=== PATIENT | female | born 1985 | race Caucasian/White ===

== ENCOUNTER 2019-05-13 08:40 | Day surgery (SDC) | payer OTHER ==
[~2019-05-13] VITALS: Ht 162.6 cm; Wt 73.3 kg
[~2019-05-13 08:40] MED LIST: Esgic Tablet1 EACH PO; HYDACE5 PO; HYDACE5325 PO; Hydromet Syrup473 ML PO; NAPR500 PO; OXYACE5T PO; PROM25 PO; RXOXYACE PO; RXPROM25 PO; SULTRIDS PO
[2019-05-13] MEDS ORDERED: ABAT250V (09:05)
[2019-05-13] MEDS ORDERED: ACET325 PO (09:05)
--- NOTE | 2019-05-13 09:25 | NUR ---
Ambulatory in Day Surgery Surgical site prepped with 2% Chlorhexidine cloth wipe. History, Chart, Medications and Allergies reviewed before start of procedure.Lungs clear T/O to Auscultation. Patient confirms NPO status and agrees with scheduled surgery. Patient States Post-Procedure ride home has been arranged.
--- NOTE | 2019-05-13 12:35 | NUR ---
pt transferred to room via stretcher, a/0 x 4, pleasant/cooperative, rates pain at 5/10, denies n/v, post op vs commenced, stable. pt's with pt.
--- NOTE | 2019-05-13 21:36 | NUR ---
shift summary: pt remained a/o x 4, pleasant/cooperative, post op vss and complete. pt tolerates minimal PO intake of food, drinking fluids with no n/v. after attemptin dairy, pt reported some nausea, no vomiting. pt tolerated PO analgesia per mar. pt ambulated in hallways x 2. treviño catheter patent/draining clear yellow urine. scant vaginal drainage on carlitos pad. lungs clear. laparascopic sites x 3 c/d/i, no drainage
[2019-05-14 04:14] LABS: BASOPHILS ABSOLUTE AUTO 0.01 K/mm3 (0.00-0.23); BASOPHILS PERCENT AUTO 0 % (0-2); EOSINOPHILS ABSOLUTE AUTO 0.01 K/mm3 (0.00-0.68); EOSINOPHILS PERCENT AUTO 0 % (0-6); Hematocrit 37.4 % (33.0-51.0); IMMATURE GRAN ABSOLUTE AUTO 0.01 K/mm3 (0.00-0.10); IMMATURE GRAN PERCENT AUTO 0 % (0-1); LYMPHOCYTES ABSOLUTE AUTO 0.62 K/mm3 (0.84-5.20); LYMPHOCYTES PERCENT AUTO 9 % (21-46); MONOCYTES ABSOLUTE AUTO 0.77 K/mm3 (0.16-1.47); MONOCYTES PERCENT AUTO 11 % (4-13); Mean Corpuscular HGB 27.5 pg (26.0-34.0); Mean Corpuscular HGB Conc 32.1 g/dL (31.5-36.5); Mean Corpuscular Volume 86 fL (80-100); Mean Platelet Volume 9.6 fL (9.1-12.4); NEUTROPHILS ABSOLUTE AUTO 5.35 K/mm3 (1.96-9.15); NEUTROPHILS PERCENT AUTO 79 % (41-73); Platelet Count 200 K/mm3 (150-400); RDW Coefficient Variation 13.3 % (11.7-14.2); RDW Standard Deviation 41.9 fL (35.1-46.3); Red Blood Cell Count 4.37 M/mm3 (3.80-5.20); White Blood Cell Count 6.77 K/mm3 (4.00-11.30)
--- NOTE | 2019-05-14 06:24 | NUR ---
SHIFT SUMMARY PATIENT HAS HAD AN UNEVENTFUL NIGHT. SHE WAS UP IN THE [facility] WALKING LOOPS WITH HER . SHE WAS EXPERIENCING 6-8/10 ABDOMINAL AND VAGINAL PAIN, MEDICATED PER EMAR. tHIS MORNING SHE HAS BEEN PASSING GAS AND HER PAIN IS UNDER CONTROL. SCANT VAGINAL BLEEDING, ABDOMINAL LAP SITES ARE CLEAN AND DRY. HADLEY CATH IS DRAINING CLEAR YELLOW URINE. NO OTHER ACUTE CHANGES.
[2019-05-14] MEDS ORDERED: HYDR1TAB94 PO (09:38)
[2019-05-14] MEDS ORDERED: IBUP800 PO (09:38)
[2019-05-14] MEDS ORDERED: VIVELLE DOT TD (09:40)
[2019-05-14] MEDS ORDERED: ONDA4ODT SL (09:42)
--- NOTE | 2019-05-14 11:47 | NUR ---
DISCHARGE PT DISCHARGED HOME FROM UNIT AT APROX 1100. PT GIVEN WRITTEN AND VERBAL DISCHARGE INSTRUCTIONS AND VERBALIZED UNDERSTANDING OF THESE INSTRUCTIONS. IV REMOVED, PT TOLERATED WELL. WHEELCHAIR ASSISTANCE TO CAR.
== END 2019-05-14 10:57 | disposition home or self-care (01) ==
LOC: ORSCMMR 08:40 → ORD 09:30 → SURS 12:14 → ORSCMMR 05-14 10:57
PROVIDERS: Obstetrics & Gynecology
PROC: 0UT9FZZ Resection of Uterus, Via Natural or Artificial Opening With Percutaneous Endoscopic Assistance (ICD-10-PCS; principal; 2019-05-13 09:30)
PROC: 0UT2FZZ Resection of Bilateral Ovaries, Via Natural or Artificial Opening With Percutaneous Endoscopic Assistance (ICD-10-PCS; principal; 2019-05-13 09:30)
PROC: 0UT7FZZ Resection of Bilateral Fallopian Tubes, Via Natural or Artificial Opening With Percutaneous Endoscopic Assistance (ICD-10-PCS; principal; 2019-05-13 09:30)
DX: N80.3 Endometriosis of pelvic peritoneum (principal); N80.0 Endometriosis of uterus; R10.2 Pelvic and perineal pain; N83.201 Unspecified ovarian cyst, right side; F17.210 Nicotine dependence, cigarettes, uncomplicated; M79.7 Fibromyalgia
CPT/HCPCS: 36415; 85025; 86850; 86870; 86900; 86901; 86905; 88307; A9270-GY; J0171; J0690; J1100; J1885; J2250; J2405; J2704; J2710; J2765; J3010; J7120

== ENCOUNTER 2020-08-13 12:45 | Emergency (ER) | payer OTHER ==
[~2020-08-13] VITALS: Ht 162.6 cm; Wt 65.8 kg
[~2020-08-13 12:45] MED LIST changes: +ABAT250V; +ACET325 PO; +HYDR1TAB94 PO; +IBUP800 PO; +ONDA4ODT SL; +VIVELLE DOT TD
[2020-08-13] MEDS ORDERED: CEPH500 PO (13:33)
== END 2020-08-13 13:51 | disposition home or self-care (01) ==
LOC: ER 12:45
DX: L02.213 Cutaneous abscess of chest wall (principal)
CPT/HCPCS: 99282; A9270; A9270-GY

== ENCOUNTER 2022-08-07 22:07 | Emergency (ER) | payer OTHER ==
[~2022-08-07] VITALS: Ht 162.6 cm; Wt 70.3 kg
[~2022-08-07 22:07] MED LIST changes: +CEPH500 PO
[2022-08-07] MEDS ORDERED: ONDA4 PO (23:50)
== END 2022-08-08 00:17 | disposition home or self-care (01) ==
LOC: ER 22:07
DX: R07.89 Other chest pain (principal); F17.290 Nicotine dependence, other tobacco product, uncomplicated
CPT/HCPCS: 71046; 99283-25; A9270